=== PATIENT | female | born 1990 | race Caucasian/White ===

== ENCOUNTER 2018-08-20 16:32 | Emergency (ER) | payer OTHER ==
[~2018-08-20] VITALS: Ht 152.4 cm; Wt 68.0 kg
[~2018-08-20 16:32] MED LIST: BRETHINE2.5 MG; HYDROXYZINE HCL25 MG; PANADOL EXTRA500 MG PO; ULTRAM50 MG PO
== END 2018-08-20 19:26 | disposition home or self-care (01) ==
LOC: ER 16:32
DX: O26.891 Other specified pregnancy related conditions, first trimester (principal); R10.2 Pelvic and perineal pain; Z34.01 Encounter for supervision of normal first pregnancy, first trimester

== ENCOUNTER → 2018-11-17 | Outpatient (CLI) | payer OTHER | END | disposition home or self-care (01) | LOC: PRENATAL 11-06 14:20 | DX: O98.912 Unspecified maternal infectious and parasitic disease complicating pregnancy, second trimester (principal); O09.92 Supervision of high risk pregnancy, unspecified, second trimester; O35.3XX1 Maternal care for (suspected) damage to fetus from viral disease in mother, fetus 1 ==

== ENCOUNTER 2018-11-23 12:44 | Outpatient (CLI) | payer OTHER | END 2018-11-24 13:43 | disposition home or self-care (01) | LOC: OBS/DEL 12:44 | DX: O43.892 Other placental disorders, second trimester (principal); O36.80X1 Pregnancy with inconclusive fetal viability, fetus 1; O46.092 Antepartum hemorrhage with other coagulation defect, second trimester; O26.892 Other specified pregnancy related conditions, second trimester; R10.2 Pelvic and perineal pain ==

== ENCOUNTER → 2019-01-26 | Outpatient (CLI) | payer OTHER ==
[~2019-01-26] MED LIST changes: +PRENATAL TABLE1 EAC1 PO
== END | disposition home or self-care (01) ==
LOC: PRENATAL 09:00
DX: O99.89 Other specified diseases and conditions complicating pregnancy, childbirth and the puerperium (principal); O26.843 Uterine size-date discrepancy, third trimester

== ENCOUNTER 2019-01-29 17:31 | Outpatient (CLI) | payer OTHER ==
[~2019-01-29 17:31] MED LIST changes: -PRENATAL TABLE1 EAC1 PO
[2019-01-29] MEDS ORDERED: PRENATAL TABLE1 EAC1 PO (18:28)
== END 2019-01-29 21:48 | disposition home or self-care (01) ==
LOC: OBS/DEL 17:31
DX: O26.893 Other specified pregnancy related conditions, third trimester (principal); N89.8 Other specified noninflammatory disorders of vagina; O35.8XX0 Maternal care for other (suspected) fetal abnormality and damage, not applicable or unspecified

== ENCOUNTER → 2019-03-10 | Outpatient (CLI) | payer OTHER ==
[~2019-03-10] MED LIST changes: +PRENATAL TABLE1 EAC1 PO
== END | disposition home or self-care (01) ==
LOC: PRENATAL 03-03 10:00
DX: O26.849 Uterine size-date discrepancy, unspecified trimester (principal); O35.0XX0 Maternal care for (suspected) central nervous system malformation in fetus, not applicable or unspecified; O99.89 Other specified diseases and conditions complicating pregnancy, childbirth and the puerperium; O36.8199 Decreased fetal movements, unspecified trimester, other fetus; Z3A.36 36 weeks gestation of pregnancy

== ENCOUNTER 2019-03-18 18:49 | Outpatient (CLI) | payer OTHER | END 2019-03-19 13:18 | disposition home or self-care (01) | LOC: OBS/DEL 18:49 | DX: O47.1 False labor at or after 37 completed weeks of gestation (principal); O46.093 Antepartum hemorrhage with other coagulation defect, third trimester; Z22.330 Carrier of Group B streptococcus ==

== ENCOUNTER 2019-03-23 17:54 | Inpatient (IN) | payer OTHER ==
[~2019-03-23] VITALS: Ht 152.4 cm; Wt 74.4 kg
== END 2019-03-24 11:25 | disposition home or self-care (01) | DRG 831 ==
LOC: LDR 17:54
PROVIDERS: ADMIT Obstetrics & Gynecology
PROC: 4A1HXCZ Monitoring of Products of Conception, Cardiac Rate, External Approach (ICD-10-PCS; principal; 2019-03-23)
PROC: BY4FZZZ Ultrasonography of Third Trimester, Single Fetus (ICD-10-PCS; 2019-03-24)
DX: O36.8130 Decreased fetal movements, third trimester, not applicable or unspecified (principal); O60.03 Preterm labor without delivery, third trimester; O41.03X0 Oligohydramnios, third trimester, not applicable or unspecified; Z22.330 Carrier of Group B streptococcus

== ENCOUNTER 2019-03-27 13:00 | Inpatient (IN) | payer OTHER ==
[~2019-03-27] VITALS: Ht 152.4 cm; Wt 73.9 kg
== END 2019-04-01 12:01 | disposition home or self-care (01) | DRG 807 ==
LOC: ADM 13:00 → OB/GYN 03-30 07:53 → LDR 03-30 07:53 → EDSTATUS 03-30 13:00 → LDR 03-30 13:00 → SURH 03-30 13:00 → ADM 03-30 13:00 → OB/GYN 03-30 19:33
PROVIDERS: ADMIT Obstetrics & Gynecology
PROC: 10E0XZZ Delivery of Products of Conception, External Approach (ICD-10-PCS; principal; 2019-03-30)
PROC: 10907ZC Drainage of Amniotic Fluid, Therapeutic from Products of Conception, Via Natural or Artificial Opening (ICD-10-PCS; 2019-03-30)
PROC: 3E0P7VZ Introduction of Hormone into Female Reproductive, Via Natural or Artificial Opening (ICD-10-PCS; 2019-03-30)
PROC: 3E033VJ Introduction of Other Hormone into Peripheral Vein, Percutaneous Approach (ICD-10-PCS; 2019-03-30)
PROC: 4A1HXCZ Monitoring of Products of Conception, Cardiac Rate, External Approach (ICD-10-PCS; 2019-03-30)
DX: O80 Encounter for full-term uncomplicated delivery (principal); Z37.0 Single live birth; Z3A.39 39 weeks gestation of pregnancy; Z22.330 Carrier of Group B streptococcus